=== PATIENT | male | born 1950 | race Two or more races ===

== ENCOUNTER 2022-10-04 07:07 | Day surgery (SDC) | payer OTHER ==
[~2022-10-04] VITALS: Ht 170.2 cm; Wt 101.6 kg
[~2022-10-04 07:07] MED LIST: ASPI-543 PO; ATOR10TA52 PO; ISOS1TAB28 PO; METO25TA5 PO; NITR0.4S29 SL
[2022-10-04] MEDS ORDERED: LIDOCAINE 2%HCL (LOCAL ANESTH.) INJ 20ML MDV ONE (09:24)
[2022-10-04] MEDS ORDERED: IOHEXOL 350 MG/ML 100ML IJ ONE (09:24)
[2022-10-04] MEDS ORDERED: IODIXANOL 320MG/ML 100ML BTL IV ONE ×2 (09:24→10:03)
[2022-10-04] MEDS ORDERED: ANGIOMAX 250 MG VIAL IV ONE (09:25)
[2022-10-04] MEDS ORDERED: HEPARIN SODIUM (PORCINE) 5000 UNITS/ML 1ML VIAL ONE (09:26)
[2022-10-04] MEDS ORDERED: VERAPAMIL 2.5MG/ML INJ 2ML VIAL IV ONE (09:26)
[2022-10-04] MEDS ORDERED: fentaNYL CITRATE 100 MCG/2 ML VL ONE (09:26)
[2022-10-04] MEDS ORDERED: MIDAZOLAM HCL 2MG/2ML 2ml VIAL (1mg/ml) ONE (09:27)
[2022-10-04] MEDS ORDERED: SODIUM CHL 0.9% 0 ML ONE (09:27)
== END 2022-10-04 12:47 | disposition home or self-care (01) ==
LOC: CATH 07:07
PROVIDERS: ATTEND Internal Medicine Cardiovascular Disease
DX: R94.39 Abnormal result of other cardiovascular function study (principal); I25.10 Atherosclerotic heart disease of native coronary artery without angina pectoris; I25.82 Chronic total occlusion of coronary artery; I25.5 Ischemic cardiomyopathy; I50.9 Heart failure, unspecified; Z95.1 Presence of aortocoronary bypass graft; I13.0 Hypertensive heart and chronic kidney disease with heart failure and stage 1 through stage 4 chronic kidney disease, or unspecified chronic kidney disease; N18.9 Chronic kidney disease, unspecified; R06.09 Other forms of dyspnea; R73.03 Prediabetes; I77.1 Stricture of artery; J44.9 Chronic obstructive pulmonary disease, unspecified
CPT/HCPCS: 93459; C1760; C1769; C1894; J1644; J2250; J3010; Q9967; U0003; 99152; 99153

== ENCOUNTER 2023-02-17 02:29 | Inpatient (IN) | payer OTHER ==
[~2023-02-17] VITALS: Ht 170.2 cm; Wt 98.0 kg
[2023-02-17] MEDS ORDERED: HYDROcodone-ACET 5/325MG TAB PO PRN (02:45)
[2023-02-17] MEDS ORDERED: ONDANSETRON HCL 4 MG/2 ML VIAL IV PRN (02:45)
[2023-02-17] MEDS ORDERED: ACETAMINOPHEN 325 MG TAB PO PRN (02:45)
[2023-02-17] MEDS ORDERED: hydrALAZINE HCL 20 MG/ML VL IV PRN (02:45)
[2023-02-17 04:50] VITALS: BP_SYST 100; BP_SYST 132; BP_DIAS 64; BP_DIAS 68
[2023-02-17 05:00] VITALS: BP 103/58
[2023-02-17] MEDS: cefTRIAXone 1GM/50ML D5W 50 ML IV SCH (06:18)
[2023-02-17] MEDS: SODIUM CHLORIDE 0.9% 1,000 ML IV SCH ×2 (06:18→12:48)
[2023-02-17 06:52] LABS: Basophils # (auto) 0 10 ^3/uL (0-0.2); Basophils % (auto) 0.1 % (0.0-2.0); Eosinophils # (auto) 0 10 ^3/uL (0-0.8); Eosinophils % (auto) 0.4 % (0.0-7.0); Hematocrit 41.3 % (41.0-53.0); Hemoglobin 13.8 g/dL (13.5-17.5); Lymphocytes # (auto) 1.6 10 ^3/uL (0.4-5.4); Lymphocytes % (auto) 14.3 % (10.0-50.0); Mean Corpuscular Hemoglobin 30.3 pg (28.0-32.0); Mean Corpuscular Hgb Conc. 33.5 g/dL (32.0-36.0); Mean Corpuscular Volume 90.5 fL (80.0-100.0); Monocytes # (auto) 0.9 10 ^3/uL (0-1.3); Monocytes % (auto) 8.3 % (0.0-12.0); Neutrophils # (auto) 8.6 10 ^3/uL (1.6-8.6); Neutrophils % (auto) 76.9 % (37.0-80.0); Nucleated Red Blood Cells % 0.3 %; Red Blood Cells 4.56 10^6/uL (4.5-5.90); Red Cell Distribution Width 13.9 % (11.8-14.3); White Blood Cell 11.2 10^3/uL (4.4-10.8)
[2023-02-17 07:53] LABS: Calcium 8.1 mg/dL (8.5-10.1)
[2023-02-17 09:04] VITALS: BP 101/52
[2023-02-17] MEDS ORDERED: SACU1TAB PO (13:20)
[2023-02-17] MEDS ORDERED: RANO500T2 PO (13:20)
[2023-02-17] MEDS ORDERED: SPIR25TA8 PO (13:20)
[2023-02-17] MEDS ORDERED: ERGO1CAP23 PO (13:20)
[2023-02-17] MEDS ORDERED: METO-6 PO (13:20)
[2023-02-17 14:30] VITALS: BP 114/63
[2023-02-17 16:30] VITALS: BP 126/76
[2023-02-17] MEDS ORDERED: ERGOCALCIFEROL 50,000 UNIT(1.25MG) CAP PO SCH (18:30)
[2023-02-17 22:00] VITALS: BP 103/68
[2023-02-17] MEDS ORDERED: ATORVASTATIN 20 MG TAB PO SCH (22:00)
[2023-02-17] MEDS ORDERED: SPIRONOLACTONE 25 MG TAB PO SCH (22:00)
[2023-02-18] MEDS: SACUBITRIL-VALSARTAN 24mg/26mg TAB PO SCH ×2 (01:07→10:25)
[2023-02-18] MEDS: cefTRIAXone 1GM/50ML D5W 50 ML IV SCH (01:07)
[2023-02-18] MEDS: RANOLAZINE ER 500 MG TAB PO SCH ×2 (01:08→10:25)
[2023-02-18 05:00] VITALS: BP 123/69
[2023-02-18 06:56] LABS: Basophils # (auto) 0 10 ^3/uL (0-0.2); Basophils % (auto) 0.4 % (0.0-2.0); Eosinophils # (auto) 0.2 10 ^3/uL (0-0.8); Eosinophils % (auto) 1.6 % (0.0-7.0); Hematocrit 39.8 % (41.0-53.0); Hemoglobin 13.6 g/dL (13.5-17.5); Lymphocytes # (auto) 1.8 10 ^3/uL (0.4-5.4); Mean Corpuscular Hemoglobin 30.9 pg (28.0-32.0); Mean Corpuscular Hgb Conc. 34.3 g/dL (32.0-36.0); Mean Corpuscular Volume 90.3 fL (80.0-100.0); Monocytes # (auto) 0.9 10 ^3/uL (0-1.3); Monocytes % (auto) 8.5 % (0.0-12.0); Neutrophils # (auto) 7.3 10 ^3/uL (1.6-8.6); Neutrophils % (auto) 71.5 % (37.0-80.0); Nucleated Red Blood Cells % 0.1 %; Red Blood Cells 4.41 10^6/uL (4.5-5.90); Red Cell Distribution Width 14.1 % (11.8-14.3); White Blood Cell 10.2 10^3/uL (4.4-10.8)
[2023-02-18 07:35] LABS: Potassium 4.2 mmol/L (3.5-5.1)
[2023-02-18 07:57] LABS: BUN/Creatinine Ratio 24.4 (10.0-20.0)
[2023-02-18 09:00] VITALS: BP 107/66
[2023-02-18] MEDS ORDERED: METOPROLOL SUCCINATE XL 50 MG TAB PO SCH (10:00)
[2023-02-18] MEDS ORDERED: ASPirin 81 mg TAB PO SCH (10:00)
[2023-02-18 13:00] VITALS: BP 113/74
[2023-02-18] MEDS ORDERED: CEPH-510 PO (16:11)
[2023-02-18 16:32] VITALS: BP 107/66
[2023-02-18 17:00] VITALS: BP 113/72
== END 2023-02-18 18:10 | disposition home health service (06) | DRG 683 ==
LOC: WEST WING 02:31
PROVIDERS: ADMIT Nurse Practitioner Family; ATTEND Nurse Practitioner Family
DX: N17.9 Acute kidney failure, unspecified (principal); N13.8 Other obstructive and reflux uropathy; N39.0 Urinary tract infection, site not specified; R33.9 Retention of urine, unspecified; N40.1 Benign prostatic hyperplasia with lower urinary tract symptoms; E78.5 Hyperlipidemia, unspecified; I12.9 Hypertensive chronic kidney disease with stage 1 through stage 4 chronic kidney disease, or unspecified chronic kidney disease; N18.2 Chronic kidney disease, stage 2 (mild); I25.10 Atherosclerotic heart disease of native coronary artery without angina pectoris; Z79.899 Other long term (current) drug therapy; Z82.3 Family history of stroke; Z82.49 Family history of ischemic heart disease and other diseases of the circulatory system; Z86.73 Personal history of transient ischemic attack (TIA), and cerebral infarction without residual deficits
CPT/HCPCS: 36415; 80048; 85025; 87040; G0378; J0696

== ENCOUNTER 2023-02-24 13:54 | Emergency (ER) | payer OTHER ==
[~2023-02-24] VITALS: Ht 170.2 cm; Wt 100.0 kg
[~2023-02-24 13:54] MED LIST changes: +CEPH-510 PO; +ERGO1CAP23 PO; +METO-6 PO; +RANO500T2 PO; +SACU1TAB PO; +SPIR25TA8 PO
[2023-02-24] MEDS ORDERED: SODIUM CHLORIDE 0.9% 1,000 ML IV ONE (14:30)
[2023-02-24 14:52] LABS: Basophils # (auto) 0.1 10 ^3/uL (0-0.2); Basophils % (auto) 1.2 % (0.0-2.0); Eosinophils # (auto) 0.2 10 ^3/uL (0-0.8); Hematocrit 45.8 % (41.0-53.0); Hemoglobin 15.2 g/dL (13.5-17.5); Lymphocytes # (auto) 2.6 10 ^3/uL (0.4-5.4); Lymphocytes % (auto) 23.9 % (10.0-50.0); Mean Corpuscular Hemoglobin 30.8 pg (28.0-32.0); Mean Corpuscular Hgb Conc. 33.1 g/dL (32.0-36.0); Mean Corpuscular Volume 92.9 fL (80.0-100.0); Monocytes # (auto) 0.8 10 ^3/uL (0-1.3); Monocytes % (auto) 7.7 % (0.0-12.0); Neutrophils # (auto) 7.1 10 ^3/uL (1.6-8.6); Neutrophils % (auto) 65.2 % (37.0-80.0); Nucleated Red Blood Cells % 0.1 %; Red Blood Cells 4.93 10^6/uL (4.5-5.90); Red Cell Distribution Width 14.4 % (11.8-14.3); White Blood Cell 10.9 10^3/uL (4.4-10.8)
[2023-02-24 15:05] LABS: Urine Bacteria NONE SEEN /hpf (None Seen); Urine Blood 3+ /uL (Negative); Urine Specific Gravity 1.017 (1.001-1.035); Urine WBC 131 /hpf (0 - 3); Urine WBC Clumps PRESENT /hpf (None Seen)
[2023-02-24 15:07] LABS: Magnesium 2.1 mg/dL (1.6-2.6); Potassium 4.7 mmol/L (3.5-5.1)
[2023-02-24 15:10] LABS: BUN/Creatinine Ratio 16.2 (10.0-20.0); Bilirubin, Total 0.6 mg/dL (0.2-1.0); Total Protein 6.5 g/dL (6.4-8.2)
[2023-02-24 20:49] VITALS: BP 117/68
== END 2023-02-24 21:11 | disposition home or self-care (01) ==
LOC: ER 13:54
DX: N39.0 Urinary tract infection, site not specified (principal); N32.0 Bladder-neck obstruction; I10 Essential (primary) hypertension; R06.02 Shortness of breath
CPT/HCPCS: 36415; 71046; 76775; 80053; 81001; 83735; 83880; 84154; 84484; 85025; 87086

== ENCOUNTER 2023-03-18 07:33 | Emergency (ER) | payer OTHER ==
[2023-03-18 07:42] VITALS: BP 116/63
[2023-03-18] MEDS ORDERED: CIPR-173 PO (09:39)
[2023-03-18 09:43] LABS: Urine Bacteria NONE SEEN /hpf (None Seen); Urine Blood Negative /uL (Negative); Urine Specific Gravity 1.017 (1.001-1.035); Urine WBC 18 /hpf (0 - 3)
== END 2023-03-18 09:54 | disposition home or self-care (01) ==
LOC: ER 07:33
DX: N39.0 Urinary tract infection, site not specified (principal); R33.9 Retention of urine, unspecified; I10 Essential (primary) hypertension; Z46.6 Encounter for fitting and adjustment of urinary device
CPT/HCPCS: 81001

== ENCOUNTER 2023-03-22 14:25 | Emergency (ER) | payer OTHER ==
[~2023-03-22] VITALS: Ht 170.2 cm; Wt 95.4 kg
[~2023-03-22 14:25] MED LIST changes: +CIPR-173 PO
[2023-03-22 14:50] VITALS: BP 106/67
[2023-03-22 17:29] LABS: Urine Bacteria NONE SEEN /hpf (None Seen); Urine Blood 1+ /uL (Negative); Urine Mucus FEW (None Seen); Urine Specific Gravity 1.017 (1.001-1.035); Urine WBC 2 /hpf (0 - 3)
== END 2023-03-22 17:44 | disposition home or self-care (01) ==
LOC: ER 14:25
DX: N40.1 Benign prostatic hyperplasia with lower urinary tract symptoms (principal); R33.9 Retention of urine, unspecified; N32.0 Bladder-neck obstruction; I10 Essential (primary) hypertension; Z88.1 Allergy status to other antibiotic agents
CPT/HCPCS: 51702; 81001

== ENCOUNTER 2023-06-16 03:56 | Emergency (ER) | payer OTHER ==
[~2023-06-16] VITALS: Ht 170.2 cm; Wt 96.6 kg
[2023-06-16 04:28] VITALS: BP 101/60; PULSE 79; RESP 16; TEMP 98.3
[2023-06-16 06:44] VITALS: O2SAT 95
== END 2023-06-16 07:30 | disposition home or self-care (01) ==
LOC: ER 03:56
DX: N40.1 Benign prostatic hyperplasia with lower urinary tract symptoms (principal); T83.018A Breakdown (mechanical) of other urinary catheter, initial encounter; N32.0 Bladder-neck obstruction; N13.8 Other obstructive and reflux uropathy; I10 Essential (primary) hypertension
CPT/HCPCS: 51702

== ENCOUNTER 2023-07-02 07:09 | Emergency (ER) | payer OTHER ==
[~2023-07-02] VITALS: Ht 170.2 cm; Wt 97.0 kg
[2023-07-02 07:54] VITALS: BP 107/67; PULSE 68; RESP 16; TEMP 97.7; O2SAT 97
== END 2023-07-02 08:56 | disposition home or self-care (01) ==
LOC: ER 07:09
DX: T83.018A Breakdown (mechanical) of other urinary catheter, initial encounter (principal); R33.9 Retention of urine, unspecified; J44.9 Chronic obstructive pulmonary disease, unspecified
CPT/HCPCS: 51702

== ENCOUNTER 2023-07-25 06:04 | Observation (INO) | payer OTHER ==
[~2023-07-25] VITALS: Ht 170.2 cm; Wt 99.0 kg
[~2023-07-25 06:04] MED LIST changes: -ATOR10TA52 PO; +ATOR40TA52 PO; -CEPH-510 PO; -CIPR-173 PO; -ISOS1TAB28 PO; -METO25TA5 PO; -NITR0.4S29 SL; +TAMS1CAP25 PO
[2023-07-25] MEDS ORDERED: GLYCOPYRROLATE 0.2 MG/ML 1ML VIAL ONE (06:54)
[2023-07-25] MEDS ORDERED: DexAMETHasone SOD PHOS 10MG/1ML VIAL INJ ONE (06:54)
[2023-07-25] MEDS ORDERED: ONDANSETRON HCL 4 MG/2 ML VIAL ONE (06:54)
[2023-07-25] MEDS ORDERED: PROPOFOL 10 MG/ML 20 ML IV ONE (06:54)
[2023-07-25] MEDS ORDERED: LIDOCAINE 2% (LOCAL ANESTH.) PF 5ml SDV ONE (06:54)
[2023-07-25] MEDS ORDERED: fentaNYL CITRATE 100 MCG/2 ML VL ONE (06:56)
[2023-07-25] MEDS ORDERED: LIDOCAINE 2% JELLY 11ml (GLYDO) ONE (07:29)
[2023-07-25] MEDS ORDERED: CIPROFLOXACIN 400MG/200ML 200 ML IV ONE (07:29)
[2023-07-25] MEDS ORDERED: PHENYLEPHRINE HCL 10 MG/ML VL ONE ×2 (07:56→08:20)
[2023-07-25] MEDS ORDERED: ePHEDrine SULFATE 50 MG/ML AMP ONE (07:56)
[2023-07-25] MEDS ORDERED: SODIUM CHLORIDE LOCK 20 ML ONE ×2 (07:56→08:20)
[2023-07-25 09:00] VITALS: O2SAT 96; O2SAT 97
[2023-07-25] MEDS ORDERED: MORPHINE SULFATE INJ 2 MG/ml SYRG IV PRN (09:15)
[2023-07-25] MEDS ORDERED: NITROGLYCERIN 0.4 MG SL TAB SL PRN (09:15)
[2023-07-25] MEDS ORDERED: ONDANSETRON HCL 4 MG/2 ML VIAL IV PRN (09:30)
[2023-07-25] MEDS ORDERED: fentaNYL CITRATE 100 MCG/2 ML VL IV PRN (09:30)
[2023-07-25] MEDS ORDERED: hydrALAZINE HCL 20 MG/ML VL IV PRN (09:30)
[2023-07-25] MEDS ORDERED: FLUMAZENIL 0.1 MG/ML INJ 10ML MDV IV PRN (09:30)
[2023-07-25] MEDS ORDERED: NALOXONE HCL 0.4 MG/ML VIAL IV PRN (09:30)
[2023-07-25] MEDS ORDERED: ePHEDrine SULFATE 50 MG/ML AMP IV PRN (09:30)
[2023-07-25] MEDS ORDERED: LABETALOL HCL 5 MG/ML 4ML SYRINGE IV PRN (09:30)
[2023-07-25] MEDS ORDERED: HYDROmorphone HCL 2 MG/ML VL/or syr IV PRN (09:30)
[2023-07-25 10:12] VITALS: BP 113/63; PULSE 73; RESP 16; TEMP 97.6; O2SAT 97
[2023-07-25 11:23] VITALS: BP 105/62; PULSE 67; RESP 17; TEMP 98.2; O2SAT 95
[2023-07-25 17:01] VITALS: BP 109/61; PULSE 68; RESP 16; TEMP 97.7; O2SAT 93
[2023-07-25 20:00] VITALS: PULSE 77; RESP 18; O2SAT 91
[2023-07-25] MEDS: CIPROFLOXACIN 400MG/200ML 200 ML IV SCH (21:55)
[2023-07-26 04:18] VITALS: BP 109/55; PULSE 77; RESP 18; TEMP 98.4; O2SAT 91
[2023-07-26 08:00] VITALS: PULSE 82; RESP 18; O2SAT 94
[2023-07-26 09:00] VITALS: BP 114/60; PULSE 59; RESP 18; TEMP 98; O2SAT 92
[2023-07-26] MEDS: CIPROFLOXACIN 400MG/200ML 200 ML IV SCH (09:53)
[2023-07-26 13:00] VITALS: BP 102/62; PULSE 55; RESP 19; TEMP 97.7; O2SAT 92
[2023-07-26 15:19] VITALS: TEMP 36.7
== END 2023-07-26 16:30 | disposition home or self-care (01) ==
LOC: SUR 06:04 → CENTRAL 09:05
PROVIDERS: ADMIT Urology; ATTEND Urology
DX: N40.1 Benign prostatic hyperplasia with lower urinary tract symptoms (principal); N13.8 Other obstructive and reflux uropathy; R31.9 Hematuria, unspecified; R33.9 Retention of urine, unspecified; I42.9 Cardiomyopathy, unspecified; I08.1 Rheumatic disorders of both mitral and tricuspid valves; I11.0 Hypertensive heart disease with heart failure; I50.9 Heart failure, unspecified; I25.10 Atherosclerotic heart disease of native coronary artery without angina pectoris; N17.9 Acute kidney failure, unspecified; Z90.79 Acquired absence of other genital organ(s); Z79.899 Other long term (current) drug therapy
CPT/HCPCS: 52649; 96365; 96366; G0378; J0744; J1100; J2001; J2405; J2704; J3010; J7030

== ENCOUNTER 2025-04-02 06:42 | Day surgery (SDC) | payer OTHER ==
[~2025-04-02] VITALS: Ht 170.2 cm; Wt 94.3 kg
[~2025-04-02 06:42] MED LIST changes: -ERGO1CAP23 PO; -SACU1TAB PO; -TAMS1CAP25 PO
[2025-04-02] MEDS: HEPARIN IN NS 1000Units/500mL 1,500 ML ONE (08:38)
[2025-04-02] MEDS: IODIXANOL 320MG/ML 100ML BTL IV ONE (08:38)
[2025-04-02] MEDS: ANGIOMAX 250 MG VIAL IV ONE (09:03)
[2025-04-02] MEDS: SODIUM CHL 0.9% 0 ML ONE (09:03)
[2025-04-02] MEDS: LIDOCAINE 2%HCL (LOCAL ANESTH.) INJ 20ML MDV ONE (09:03)
[2025-04-02] MEDS: fentaNYL CITRATE 100 MCG/2 ML VL ONE (09:22)
[2025-04-02] MEDS: MIDAZOLAM HCL 2MG/2ML 2ml VIAL (1mg/ml) ONE (09:23)
--- NOTE | 2025-04-02 10:11 | DVHOP2 ---
Operative Report - 2 Report Details Date: 04/02/25 Preop Diagnosis: Coronary artery disease Postop Diagnosis: Triple-vessel CAD Surgeon: Ron Rust MD Anesthesiologist: Conscious sedation Anesthesia: Mac, Local ( Versed and fentanyl were given at the initiation of the procedure. Patient was monitored throughout.) Consent: The patient was informed of the risks and benefits of the procedure. These include but are not limited to complications of anesthesia, postoperative infection, incomplete relief of symptoms, recurrence of symptoms, damage to blood vessels, nerves and tendons, deep venous thrombosis, pulmonary embolism and possible need for repeat surgery in the future. Complications: No complications Estimated Blood Loss: 2 cc Findings: Three-vessel disease. Patent left internal mammary artery to the LAD. Patent saphenous graft to the RCA. Patent saphenous graft to the 1st marginal. Indications for Surgery: Congestive heart failure. Chest pain. Name of Procedure Performed Left heart catheterization. Bilateral cine coronary angiography. Left ventriculography. Saphenous venous graft evaluation. Left internal mammary artery evaluation. Procedure Details Procedure Details: Prior local anesthesia with 2% lidocaine to the right groin and full informed consent obtained the patient was prepped and draped in the usual fashion followed by placement of a six [place] sheath right femoral artery through which Tamia catheters were used to cannulate both right and left coronary ostium and ventriculography without complications. Internal mammary artery and saphenous g rafts were evaluated with a right coronary catheter. Hemodynamics: Aortic blood pressure was 100/80. End-diastolic pressure was five. There was no gradient across the aortic valve on pullback. Coronary anatomy: The RCA is a large vessel it is 100% occluded proximally a large acute marginal branch arises. Left main is large and normal. No send left anterior descending is large with a proximal 75-80% lesion. Competitive flow is noted from the mid LAD from a left internal mammary artery anastomosed to the LAD. Competitive flow is noted from a intermediate/ 1st marginal branch. Noted small circumflex occluded mid section. The circumflex itself as noted. Occluded at its midline. Large marginal branch has a 75-80% stenosis with competitive flow. The saphenous graft to the distal RCA is patent. The distal RCA prior to the origin of the posterolateral has a 75% lesion. There is little runoff to the posterolateral branch. PDA is patent with good antegrade flow. The saphenous graft to the intermediate is large and normal. The intermediate itself is free of significant disease. Left internal mammary artery to the LAD is patent and it is normal. The anastomosis is at its proximal to mid section with no significant disease. Good antegrade flow along the LAD. The LAD distal to the anastomosis at its mid to distal segment has a 50-60% lesion that is non flow limiting. Ventriculography in the RHOADES projection shows inferobasal hypokinesis to akinesis with an enlarged left ventricle. EF is approximately 40%. Global hypokinesis. Impression: Normal left ventricular end-diastolic pressure at rest decreased left ventricular ejection fraction. Triple-vessel disease as noted above with a patent saphenous graft to the RCA. Patent saphenous graft to the 1st marginal. Patent left internal mammary artery to the LAD. Recommendations: Continue risk factor modification and sodium restriction. Condition Good Disposition Home Date of Service: April 02, 2025 Billing Provider: RON RUST Sr., MD Cardiology Common Codes: 45063-LHPSOYD INP/OBS CARE (High) Cardiology Procedure Codes: 21499-PZMZOX VESSEL W/I VASC FAM, 62748-KJZE ADD COR ART/BRNCH/GRFT, 30592-SGUT HEART CATH W/INTRA INJ, 14512-N/L HEART CATH W/BYPASS GFT RON RUST Sr., MD April 02, 2025 10:11
== END 2025-04-02 12:26 | disposition home or self-care (01) ==
LOC: CATH 06:42
PROVIDERS: ATTEND Internal Medicine
DX: I25.10 Atherosclerotic heart disease of native coronary artery without angina pectoris (principal); I50.20 Unspecified systolic (congestive) heart failure; R07.9 Chest pain, unspecified; I42.9 Cardiomyopathy, unspecified; J44.9 Chronic obstructive pulmonary disease, unspecified; I11.0 Hypertensive heart disease with heart failure; Z98.890 Other specified postprocedural states; Z79.899 Other long term (current) drug therapy; F17.200 Nicotine dependence, unspecified, uncomplicated; E78.5 Hyperlipidemia, unspecified; I25.2 Old myocardial infarction
CPT/HCPCS: 93459; C1894; J1644; J2250; J3010; Q9967; 99152